=== PATIENT | male | born 1965 | race Caucasian/White ===

== ENCOUNTER 2017-12-13 08:13 | Inpatient (IN) | payer BC ==
[~2017-12-13] VITALS: Ht 180.3 cm; Wt 136.5 kg
[2017-12-13] VITALS (20 sets, daily range): BP systolic 132–171; BP diastolic 8–86; PULSE 55–69; RESP 17–20; TEMP 97.6–98.1; O2SAT 94–98
[2017-12-13] MEDS ORDERED: LISI10TA3 PO (08:23)
[2017-12-13] MEDS ORDERED: PLAV75TA29 PO (08:23)
[2017-12-13] MEDS ORDERED: GLIP10TA6 PO (08:23)
[2017-12-13] MEDS ORDERED: LEVEMIR SQ ×2 (08:23)
[2017-12-13] MEDS ORDERED: HYDR-3801 PO ×2 (08:26→15:45)
[2017-12-13] MEDS ORDERED: ASPI-516 PO (08:27)
[2017-12-13] MEDS ORDERED: CARV25TA PO (08:27)
[2017-12-13] MEDS ORDERED: VALS1TAB65 PO (08:28)
[2017-12-13] MEDS ORDERED: ISOS60TA PO (08:28)
[2017-12-13] MEDS ORDERED: ATOR40TA16 PO (08:28)
[2017-12-13] MEDS ORDERED: SODIUM CHLORIDE 0.9% FLUSH 10 ML FLUSH IVF PRN (08:30)
[2017-12-13] MEDS ORDERED: ASPIRIN 81 MG CHEW TAB PO ONE (08:30)
[2017-12-13 08:53] LABS: AUTOMATED NEUTROPHIL # 6.5 TH/MM3 (1.8-7.7); BASOPHIL % 0.5 % (0.0-2.0); EOSINOPHIL # 0.2 TH/MM3 (0-0.4); EOSINOPHIL % 1.8 % (0.0-4.0); HEMATOCRIT 26.4 % (39.0-51.0); HEMOGLOBIN 8.9 GM/DL (13.0-17.0); LYMPH % 18.6 % (9.0-44.0); LYMPHOCYTE # 1.7 TH/MM3 (1.0-4.8); MEAN CELL VOLUME 83.8 FL (80.0-100.0); MEAN CORPUSCULAR HEMOGLOBIN 28.2 PG (27.0-34.0); MEAN CORPUSCULAR HGB CONC 33.7 % (32.0-36.0); MONOCYTE # 0.9 TH/MM3 (0-0.9); NEUT % 69.1 % (16.0-70.0); PLATELET COUNT 169 TH/MM3 (150-450); RED BLOOD COUNT 3.15 MIL/MM3 (4.50-5.90); RED CELL DISTRIBUTION WIDTH 14.7 % (11.6-17.2); WHITE BLOOD COUNT 9.3 TH/MM3 (4.0-11.0)
[2017-12-13 09:05] LABS: INTERNATIONAL NORMALIZED RATIO 1.1 RATIO
[2017-12-13 09:14] LABS: ALBUMIN 3.5 GM/DL (3.4-5.0); AST (GOT) 22 U/L (15-37); BICARBONATE 14.9 MEQ/L (21.0-32.0); BLOOD UREA NITROGEN 97 MG/DL (7-18); CALCIUM 8.6 MG/DL (8.5-10.1); CHLORIDE 116 MEQ/L (98-107); CREATININE 2.42 MG/DL (0.60-1.30); GLOMERULAR FILTRATION RATE 29 ML/MIN (>89); GLUCOSE,RANDOM 148 MG/DL (74-106); SODIUM (NA) 141 MEQ/L (136-145)
[2017-12-13 09:19] LABS: ALKALINE PHOSPHATASE 76 U/L (45-117); ALT (GPT) 24 U/L (12-78); TOTAL BILIRUBIN ADULT 0.3 MG/DL (0.2-1.0); TOTAL PROTEIN 7.5 GM/DL (6.4-8.2); TROPONIN I 0.27 NG/ML (0.02-0.05)
[2017-12-13] MEDS ORDERED: SODIUM CHLOR 0.9% 1000 ML INJ 1,000 ML IV ONE (09:30)
--- NOTE | 2017-12-13 09:34 | PD ---
HPI Chief Complaint: Chest Pain Time Seen by Provider: 08:21 Travel History International Travel<30 days: No Contact w/Intl Traveler<30days: No Traveled to known affect area: No History of Present Illness HPI Patient is a 52 year old male with history of CABG, who comes in complaining of chest pain. He says he often gets chest pain, usually in the afternoons after exerting himself. He says that two days ago he started having this pain and it has not been going away. He says that yesterday he was fine, but again today he developed severe pain. He says he feels like the pain comes up from his stomach and then he has some crushing pain to the middle of his chest. Two days ago he had some nausea and vomiting. He denies difficulty breathing or fever or chills. He has not taken anything for his symptoms. He says that usually rest makes his pain better, but it has still been coming on. Severity is moderate. PFSH Past Medical History Hx Anticoagulant Therapy: Yes (plavix) Cardiomyopathy: Yes Cardiovascular Problems: Yes High Cholesterol: Yes Diabetes: Yes Patient Takes Glucophage: No Diminished Hearing: No Hypertension: Yes Medical other: Yes Tetanus Vaccination: < 5 Years Influenza Vaccination: No Past Surgical History Cardiac Surgery: Yes (CABG) Coronary Artery Bypass Graft: Yes Social History Alcohol Use: No Tobacco Use: No Substance Use: No Allergies-Medications (Allergen,Severity, Reaction): Coded Allergies: lisinopril (Verified Adverse Reaction, Severe, HEADACHE, 12/13/17) sitagliptin (Verified Adverse Reaction, Severe, NAUSEAS, 12/13/17) Reported Meds & Prescriptions Reported Meds & Active Scripts Active Reported Hydralazine (Hydralazine HCl) 100 Mg Tab 100 Mg PO TID Take with meals Atorvastatin (Atorvastatin Calcium) 40 Mg Tab 40 Mg PO HS Isosorbide Mononitrate ER (Isosorbide Mononitrate) 60 Mg Tab 60 Mg PO DAILY Valsartan 160 Mg Tab 160 Mg PO DAILY Carvedilol 25 Mg Tab 25 Mg PO BID Aspirin 81 Mg Chew 81 Mg PO DAILY Levemir Inj (Insulin Detemir) 1,000 unit/ 10 ML Vial 25 Units SQ DAILY Do not mix with any other Insulin. Glipizide 10 Mg Tab 10 Mg PO DAILY Take 30 minutes before a meal Plavix (Clopidogrel Bisulfate) 75 Mg Tab 75 Mg PO DAILY Review of Systems Except as stated in HPI: all other systems reviewed are Neg General / Constitutional: No: Fever, Chills HENT: No: Headaches, Lightheadedness Cardiovascular: Positive: Chest Pain or Discomfort Respiratory: No: Shortness of Breath Gastrointestinal: Positive: Nausea Genitourinary: No: Dysuria Musculoskeletal: No: Myalgias, Edema Skin: No Rash, No Change in Pigmentation Physical Exam Narrative GENERAL: Awake and alert, no acute distress. SKIN: Focused skin assessment warm/dry. HEAD: Atraumatic. Normocephalic. EYES: Pupils equal and round. No scleral icterus. ENT: Mucous membranes pink and moist. NECK: Trachea midline. No JVD. CARDIOVASCULAR: Regular rate and rhythm. No murmur appreciated. RESPIRATORY: No accessory muscle use. Clear to auscultation. Breath sounds equal bilaterally. GASTROINTESTINAL: Abdomen soft, non-tender, nondistended. MUSCULOSKELETAL: No obvious deformities. No clubbing. No cyanosis. No edema. NEUROLOGICAL: Awake and alert. No obvious cranial nerve deficits. Motor grossly within normal limits. Normal speech. PSYCHIATRIC: Appropriate mood and affect; insight and judgment normal. Data Data Last Documented VS Vital Signs Date Time Temp Pulse Resp B/P (MAP) Pulse Ox O2 Delivery O2 Flow Rate FiO2 12/13/17 10:32 97.7 58 18 132/62 (85) 97 Room Air Orders Orders B-Type Natriuretic Peptide (12/13/17 08:29) Complete Blood Count With Diff (12/13/17 08:29) Comprehensive Metabolic Panel (12/13/17 08:29) Prothrombin Time / Inr (Pt) (12/13/17 08:29) Act Partial Throm Time (Ptt) (12/13/17 08:29) Troponin I (12/13/17 08:29) Lipase (12/13/17 08:29) Chest, Single Ap (12/13/17 08:29) Ecg Monitoring (12/13/17 08:29) Bilateral Bp Monitoring (12/13/17 08:29) Iv Access Insert/Monitor (12/13/17 08:29) Oximetry (12/13/17 08:29) Oxygen Administration (12/13/17 08:29) Aspirin Chew (Aspirin Chew) (12/13/17 08:30) Sodium Chloride 0.9% Flush (Ns Flush) (12/13/17 08:30) Sodium Chlor 0.9% 1000 Ml Inj (Ns 1000 M (12/13/17 09:30) Ct Abd/Pel W/O Iv Contrast (12/13/17 ) Electrocardiogram (12/13/17 08:21) Admit Order (Ed Use Only) (12/13/17 ) Labs Laboratory Tests Test 12/13/17 08:36 White Blood Count 9.3 TH/MM3 Red Blood Count 3.15 MIL/MM3 Hemoglobin 8.9 GM/DL Hematocrit 26.4 % Mean Corpuscular Volume 83.8 FL Mean Corpuscular Hemoglobin 28.2 PG Mean Corpuscular Hemoglobin Concent 33.7 % Red Cell Distribution Width 14.7 % Platelet Count 169 TH/MM3 Mean Platelet Volume 8.0 FL Neutrophils (%) (Auto) 69.1 % Lymphocytes (%) (Auto) 18.6 % Monocytes (%) (Auto) 10.0 % Eosinophils (%) (Auto) 1.8 % Basophils (%) (Auto) 0.5 % Neutrophils # (Auto) 6.5 TH/MM3 Lymphocytes # (Auto) 1.7 TH/MM3 Monocytes # (Auto) 0.9 TH/MM3 Eosinophils # (Auto) 0.2 TH/MM3 Basophils # (Auto) 0.0 TH/MM3 CBC Comment DIFF FINAL Differential Comment Prothrombin Time 11.0 SEC Prothromb Time International Ratio 1.1 RATIO Activated Partial Thromboplast Time 31.9 SEC Blood Urea Nitrogen 97 MG/DL Creatinine 2.42 MG/DL Random Glucose 148 MG/DL Total Protein 7.5 GM/DL Albumin 3.5 GM/DL Calcium Level 8.6 MG/DL Alkaline Phosphatase 76 U/L Aspartate Amino Transf (AST/SGOT) 22 U/L Alanine Aminotransferase (ALT/SGPT) 24 U/L Total Bilirubin 0.3 MG/DL Sodium Level 141 MEQ/L Potassium Level 4.9 MEQ/L Chloride Level 116 MEQ/L Carbon Dioxide Level 14.9 MEQ/L Anion Gap 10 MEQ/L Estimat Glomerular Filtration Rate 29 ML/MIN Total Creatine Kinase 238 U/L Troponin I 0.27 NG/ML B-Type Natriuretic Peptide 273 PG/ML Triglycerides Level 99 MG/DL Cholesterol Level 60 MG/DL LDL Cholesterol 10 MG/DL HDL Cholesterol 30.3 MG/DL Cholesterol/HDL Ratio 1.98 RATIO Lipase 1238 U/L MDM Medical Decision Making Medical Screen Exam Complete: Yes Emergency Medical Condition: Yes Interpretation(s) ECG shows normal sinus rhythm, mild ST depression in leads I and aVL. Differential Diagnosis ACS versus an STEMI versus STEMI versus pancreatitis versus cholecystitis Narrative Course Patient is a 52-year-old male who comes in complaining of chest pain that radiates to his back. He did have some nausea and vomiting as well. IV established, labs sent. Labs show an elevated troponin to 0.27. Lipase is also elevated to 1238 and BUN is 97 with a creatinine of 2.37. Patient given IV fluids. Given aspirin and started on heparin. CT abdomen and pelvis performed shows possible gallstone. Last 24 hours Impressions Chest X-Ray 12/13/17 0829 Signed Impressions: Service Date/Time: Wednesday, December 13, 2017 08:38 - CONCLUSION: 1. Minimal streakiness within the left midlung field consistent with atelectasis and/or developing infiltrate. 2. Cardiomegaly. Kamran Reyes MD Abdomen/Pelvis CT 12/13/17 0000 Signed Impressions: Service Date/Time: Wednesday, December 13, 2017 10:07 - CONCLUSION: 1. Probable gallstones. Otherwise no acute findings within the abdomen and pelvis. Manuel Ruiz MD I spoke with gastroenterology who will consult on the patient. Patient will be admitted for further management. Diagnosis Primary Impression: Gallstone pancreatitis Additional Impressions: Chest pain Qualified Codes: R07.89 - Other chest pain CAD (coronary artery disease) Qualified Codes: I25.118 - Atherosclerotic heart disease of [place] coronary artery with other forms of angina pectoris Admitting Information Admitting Physician Requests: it Cathy Guillen MD Dec 13, 2017 09:34
--- NOTE | 2017-12-13 09:50 | RADRPT ---
EXAM DATE/TIME: 12/13/2017 08:38 [facility] COMPARISON: No previous studies available for comparison. INDICATIONS : Chest pain. MEDICAL HISTORY : None. SURGICAL HISTORY : CABG. ENCOUNTER: Initial ACUITY: 1 day PAIN SCORE: 0/10 LOCATION: Bilateral chest FINDINGS: The heart is enlarged. Mediastinal wires are noted status post cardiac surgery. Minimal streakiness i s noted within the left midlung field. CONCLUSION: 1. Minimal streakiness within the left midlung field consistent with atelectasis and/or developing in filtrate. 2. Cardiomegaly. Kamran Reyes MD on December 13, 2017 at 9:47 Board Certified Radiologist. This report was verified electronically.
--- NOTE | 2017-12-13 10:39 | RADRPT ---
EXAM DATE/TIME: 12/13/2017 10:07 [facility] COMPARISON: No previous studies available for comparison. INDICATIONS : Epigastric pain with abnormal lab values. ORAL CONTRAST: No oral contrast ingested. RADIATION DOSE: 34.80 CTDIvol (mGy) ; Patient body habitus MEDICAL HISTORY : Hypertension. Cardiovascular disease Diabetes SURGICAL HISTORY : Chest surgery ENCOUNTER: Initial ACUITY: 1 day PAIN SCALE: 3/10 LOCATION: Bilateral epigastric TECHNIQUE: Volumetric scanning of the abdomen and pelvis was performed. Using automated exposure control and ad justment of the mA and/or kV according to patient size, radiation dose was kept as low as reasonably achievable to obtain optimal diagnostic quality images. DICOM format image data is available electro nically for review and comparison. FINDINGS: There is dependent atelectasis in the lungs. No acute findings in the liver, spleen, adrenals, kidneys or pancreas. Probable gallstone in gallblad liliana. No biliary ductal dilatation. Scattered colonic diverticula without evidence for diverticulitis. No bowel obstruction. No free air or free fluid. No adenopathy. CONCLUSION: 1. Probable gallstones. Otherwise no acute findings within the abdomen and pelvis. Manuel Ruiz MD on December 13, 2017 at 10:34 Board Certified Radiologist. This report was verified electronically.
[2017-12-13] MEDS ORDERED: HEPARIN SODIUM - IV 10,000 UNITS/10 ML VIAL IV PUSH ONE (11:15)
--- NOTE | 2017-12-13 11:25 | HHI.HP ---
[facility] Service Family Medicine Primary Care Physician No Primary Care Physician Admission Diagnosis NSTEMI, pancreatitis Diagnoses: Chief Complaint: chest pain International Travel<30 Days: No Contact w/Intl Traveler<30days: No Known Affected Area: No History of Present Illness Patient is a 52 year old male with a PMH significant for CAD s/p CABG, HTN, CKD , and DM type 2 who presents today for chest pain. He has a history significant for chest pain that has been evaluated by both cardiology and GI in the past. The chest pain he has today is the same as the pain he has been previously evaluated for. He notes that 2 days ago, he had bad chest pain. He rested the next day and his chest pain resolved, but then the pain returned today. The pain is not as strong today as it was two days ago. The pain he has been having is the same as the pain he has been having for the last few years, however usually the pain goes away with rest, but today the pain persisted and he did not feel that he could do his job. He believes this may be related to working long hours for [employer]. The pain worsens with exertion. The pain is described as pressure that is located in the center of his chest. He describes it as an exertional chest pain that subsides with rest. He denies any shortness of breath with the pain. He notes that sitting up helps the pain. He has tried nitro in the past which has helped with his pain. He is not currently having any chest pain. Sometimes he will have the pain several days in a row and sometimes he can go for a week without pain. He is currently established with [facility] in [place]. He has also had GI evaluation including an endoscopy which was normal. (Kristyn Briseno MD, R3) Review of Systems Constitutional: DENIES: Diaphoretic episodes, Fatigue, Fever, Chills, Dizziness , Change in appetite Endocrine: DENIES: Polydipsia Eyes: DENIES: Blurred vision Ears, nose, mouth, throat: DENIES: Running Nose, Sinus Pain Respiratory: DENIES: Cough, Shortness of breath Cardiovascular: COMPLAINS OF: Chest pain, Lower Extremity Edema, DENIES: Syncope, Dyspnea on Exertion, Orthopnea Gastrointestinal: DENIES: Abdominal pain, Constipation, Diarrhea, Nausea, Vomiting Musculoskeletal: COMPLAINS OF: Muscle aches, DENIES: Joint pain, Back pain Neurologic: DENIES: Headache Psychiatric: DENIES: Confusion (Kristyn Briseno MD, R3) Past Family Social History Past Medical History DM type 2 HTN CAD s/p CABG CKD Past Surgical History CABG x1 2014 Reported Medications Reported Meds & Active Scripts Active Reported Atorvastatin (Atorvastatin Calcium) 40 Mg Tab 40 Mg PO HS Isosorbide Mononitrate ER (Isosorbide Mononitrate) 60 Mg Tab 60 Mg PO DAILY Valsartan 160 Mg Tab 160 Mg PO DAILY Carvedilol 25 Mg Tab 25 Mg PO BID Aspirin 81 Mg Chew 81 Mg PO DAILY Hydralazine (Hydralazine HCl) 100 Mg Tab 50 Mg PO BID Take with meals Levemir Inj (Insulin Detemir) 1,000 unit/ 10 ML Vial 25 Units SQ DAILY Do not mix with any other Insulin. Glipizide 10 Mg Tab 10 Mg PO DAILY Take 30 minutes before a meal Plavix (Clopidogrel Bisulfate) 75 Mg Tab 75 Mg PO DAILY (Kristyn Briseno MD, R3) Allergies: Coded Allergies: lisinopril (Verified Adverse Reaction, Severe, HEADACHE, 12/13/17) sitagliptin (Verified Adverse Reaction, Severe, NAUSEAS, 12/13/17) Active Ordered Medications Current Medications Medications (Trade) Dose Ordered Sig/Mary Route Start Time Stop Time Status Last Admin (NS Flush) 2 ml UNSCH PRN IVF 12/13/17 08:30 12/13/17 08:37 (Heparin Inj) 8,000 units ONCE ONCE IV PUSH 12/13/17 11:15 12/13/17 11:16 (Heparin Inj) 5,000 units UNSCH PRN IV PUSH 12/13/17 17:15 (Heparin Inj) 2,500 units UNSCH PRN IV PUSH 12/13/17 17:15 Heparin Sodium/ Dextrose 250 ml @ 0 mls/hr TITRATE PRN IV 12/13/17 11:15 UNV Family History Mother: DM type 2, HTN Father: renal cancer, DM type 2, CAD Children: healthy 7 siblings: DM type 2, HTN Social History No tobacco, alcohol, illicit drug use. From [place], in town for bike week, working for [employer]. (Kristyn Briseno MD, R3) Physical Exam Vital Signs Vital Signs Date Time Temp Pulse Resp B/P (MAP) Pulse Ox O2 Delivery O2 Flow Rate FiO2 3/14/18 10:32 97.7 58 18 132/62 (85) 97 Room Air 12/13/17 09:19 97.7 64 18 136/63 (87) 98 Room Air 12/13/17 08:33 67 20 166/71 (102) Room Air 138/63 (88) 12/13/17 08:32 20 97 Room Air 12/13/17 08:32 97 Room Air 12/13/17 08:20 72 20 98 Room Air 12/13/17 08:18 98.0 68 20 166/71 (102) 97 Physical Exam GENERAL: This is a well-nourished, well-developed obese male patient, in no apparent distress. SKIN: No rashes, ecchymoses or lesions. Cool and dry. HEAD: Atraumatic. Normocephalic. No temporal or scalp tenderness. EYES: Pupils equal round and reactive. Extraocular motions intact. No scleral icterus. No injection or drainage. ENT: Nose without bleeding, purulent drainage or septal hematoma. Throat without erythema, tonsillar hypertrophy or exudate. Uvula midline. Airway patent. NECK: Trachea midline. No JVD or lymphadenopathy. Supple, nontender, no meningeal signs. CARDIOVASCULAR: Regular rate and rhythm without murmurs, gallops, or rubs. Minimal tenderness to palpation of chest wall. RESPIRATORY: Clear to auscultation. Breath sounds equal bilaterally. No wheezes , rales, or rhonchi. GASTROINTESTINAL: Abdomen soft, non-tender, nondistended. No hepato-splenomegaly , or palpable masses. No guarding. MUSCULOSKELETAL: Extremities without clubbing, cyanosis, or edema. No joint tenderness or effusion. Trace edema. No calf tenderness. Negative Homans sign bilaterally. NEUROLOGICAL: Awake and alert. Cranial nerves II through XII intact. Motor and sensory grossly within normal limits. Normal speech. Laboratory Laboratory Tests Test 12/13/17 08:36 White Blood Count 9.3 Red Blood Count 3.15 Hemoglobin 8.9 Hematocrit 26.4 Mean Corpuscular Volume 83.8 Mean Corpuscular Hemoglobin 28.2 Mean Corpuscular Hemoglobin Concent 33.7 Red Cell Distribution Width 14.7 Platelet Count 169 Mean Platelet Volume 8.0 Neutrophils (%) (Auto) 69.1 Lymphocytes (%) (Auto) 18.6 Monocytes (%) (Auto) 10.0 Eosinophils (%) (Auto) 1.8 Basophils (%) (Auto) 0.5 Neutrophils # (Auto) 6.5 Lymphocytes # (Auto) 1.7 Monocytes # (Auto) 0.9 Eosinophils # (Auto) 0.2 Basophils # (Auto) 0.0 CBC Comment DIFF FINAL Differential Comment Prothrombin Time 11.0 Prothromb Time International Ratio 1.1 Activated Partial Thromboplast Time 31.9 Blood Urea Nitrogen 97 Creatinine 2.42 Random Glucose 148 Total Protein 7.5 Albumin 3.5 Calcium Level 8.6 Alkaline Phosphatase 76 Aspartate Amino Transf (AST/SGOT) 22 Alanine Aminotransferase (ALT/SGPT) 24 Total Bilirubin 0.3 Sodium Level 141 Potassium Level 4.9 Chloride Level 116 Carbon Dioxide Level 14.9 Anion Gap 10 Estimat Glomerular Filtration Rate 29 Troponin I 0.27 B-Type Natriuretic Peptide 273 Lipase 1238 (Kristyn Briseno MD, R3) Result Diagram: 12/13/17 0836 12/13/17 0836 Imaging Last Impressions Chest X-Ray 12/13/17 0829 Signed Impressions: Service Date/Time: Wednesday, December 13, 2017 08:38 - CONCLUSION: 1. Minimal streakiness within the left midlung field consistent with atelectasis and/or developing infiltrate. 2. Cardiomegaly. Kamran Reyes MD Abdomen/Pelvis CT 12/13/17 0000 Signed Impressions: Service Date/Time: Wednesday, December 13, 2017 10:07 - CONCLUSION: 1. Probable gallstones. Otherwise no acute findings within the abdomen and pelvis. Manuel Ruiz MD (Kristyn Briseno MD, R3) Caprini VTE Risk Assessment Caprini VTE Risk Assessment: Mod/High Risk (score >= 2) Caprini Risk Assessment Model Point Value = 1 Point Value = 2 Point Value = 3 Point Value = 5 Age 41-60 Minor surgery BMI > 25 kg/m2 Swollen legs Varicose veins or History of unexplained or recurrent spontaneous Oral contraceptives or hormone replacement Sepsis (< 1 month) Serious lung disease, including pneumonia (< 1 month) Abnormal pulmonary function Acute myocardial infarction Congestive heart failure (< 1 month) History of inflammatory bowel disease Medical patient at bed rest Age 61-74 Arthroscopic surgery Major open surgery (> 45 min) Laparoscopic surgery (> 45 min) Malignancy Confined to bed (> 72 hours) Immobilizing plaster cast Central venous access Age >= 75 History of VTE Family history of VTE Factor V Leiden Prothrombin [id number] Lupus anticoagulant Anticardiolipin antibodies Elevated serum homocysteine Heparin-induced thrombocytopenia Other congenital or acquired thrombophilia Stroke (< 1 month) Elective arthroplasty Hip, pelvis, or leg fracture Acute spinal cord injury (< 1 month) Prophylaxis Regimen Total Risk Factor Score Risk Level Prophylaxis Regimen 0-1 Low Early ambulation 2 Moderate Order ONE of the following: *Sequential Compression Device (SCD) *Heparin 5000 units SQ BID 3-4 Higher Order ONE of the following medications: *Heparin 5000 units SQ TID *Enoxaparin/Lovenox 40 mg SQ daily (WT < 150 kg, CrCl > 30 mL/min) *Enoxaparin/Lovenox 30 mg SQ daily (WT < 150 kg, CrCl > 10-29 mL/min) *Enoxaparin/Lovenox 30 mg SQ BID (WT < 150 kg, CrCl > 30 mL/min) AND/OR *Sequential Compression Device (SCD) 5 or more Highest Order ONE of the following medications: *Heparin 5000 units SQ TID (Preferred with Epidurals) *Enoxaparin/Lovenox 40 mg SQ daily (WT < 150 kg, CrCl > 30 mL/min) *Enoxaparin/Lovenox 30 mg SQ daily (WT < 150 kg, CrCl > 10-29 mL/min) *Enoxaparin/Lovenox 30 mg SQ BID (WT < 150 kg, CrCl > 30 mL/min) AND *Sequential Compression Device (SCD) (Kristyn Briseno MD, R3) Assessment and Plan Assessment and Plan Patient is a 52 year old male with a PMH significant for CAD s/p CABG, HTN, and DM type 2 who presents today for chest pain. Code Status Full Code Discussed Condition With sdw Dr. Dunham and Dr. De Leon R1 (Kristyn Briseno MD, R3) Attending Attestation Patient seen and examined. Case reviewed and discussed with the resident team. Agree with plan of care as discussed with me and documented in the resident note. he was seen by me on admission. agree with pancreatitis as his diagnosis but will evaluate for his half-way chest pain as well (Arelis Dunham MD) Problem List: (1) Chest pain ICD Codes: R07.9 - Chest pain, unspecified Status: Acute Plan: -DDx includes ACS, GERD, panic attack, myocarditis, costochondritis, esophageal spasm. -CAD risk factors include obesity, FH of [place], HTN, DM. -Previous stress test normal. -EKG shows NSR -CXR showed minimal streakiness in the left midlung field consistent with atelectasis or developing infiltrate. -Initial Trop elevated at 0.27. Trend Chinedu and EKGs x 2. -Supplemental O2. Daily aspirin. Protonix. -Morphine 2mg Q2 hrs PRN chest pain only. -Continue home carvedilol 25 mg by mouth twice a day -NTG PRN -Tele. -NPO for now in case of PCI. - Continue heparin drip started in the ED (2) Gallstone pancreatitis ICD Codes: K85.10 - Biliary acute pancreatitis without necrosis or infection Status: Acute Plan: Physical exam benign, no history of abdominal pain LFTs within normal limits Lipase elevated at 1238 CT abdomen/pelvis shows probably gallstones Consult GI for possible ERCP if deemed necessary (3) HTN (hypertension) ICD Codes: I10 - Essential (primary) hypertension Status: Chronic Plan: Stable. Continue home dose of carvedilol 25 mg by mouth twice a day, hydralazine 50 mg by mouth twice a day, valsartan 160 mg by mouth daily (4) CAD (coronary artery disease) ICD Codes: I25.10 - Atherosclerotic heart disease of [place] coronary artery without angina pectoris Status: Chronic Plan: Continue Plavix 75 mg by mouth daily, atorvastatin 40 mg by mouth at bedtime, isosorbide mononitrate 60 mg by mouth daily, aspirin 81 mg by mouth daily and carvedilol 25 mg by mouth twice a day (5) CKD (chronic kidney disease) ICD Codes: N18.9 - Chronic kidney disease, unspecified Status: Chronic Plan: Creatinine 2.42 on admission, no baseline available however patient states it is usually around 4 Avoid nephrotoxic medications Renally dose medications (6) DM type 2 (diabetes mellitus, type 2) ICD Codes: E11.9 - Type 2 diabetes mellitus without complications Status: Chronic Plan: Patient on glipizide 10 mg by mouth daily and Levemir 25 units SQ daily at home Hold home glipizide Decrease Levemir to 12 units SQ daily as patient is currently nothing by mouth Accu-Cheks and Sliding scale insulin (7) Nutrition, metabolism, and development symptoms ICD Codes: R63.8 - Other symptoms and signs concerning food and fluid intake Status: Acute Plan: Fluids: None Electrolytes: wnl, continue to monitor and replete PRN Nutrition: NPO for possible cath DVT ppx: on heparin drip (Kristyn Briseno MD, R3) Physician Certification 2 Midnight Certification Type: Admission for Inpatient Services Order for Inpatient Services The services are ordered in accordance with Medicare regulations or non- Medicare payer requirements, as applicable. In the case of services not specified as inpatient-only, they are appropriately provided as inpatient services in accordance with the 2-midnight benchmark. Estimated LOS (days): 2 days is the estimated time the patient will need to remain in the hospital, assuming treatment plan goals are met and no additional complications. Post-Hospital Plan: Home (Kristyn Briseno MD, R3) Problem Qualifiers (1) Chest pain: Qualified Codes: R07.89 - Other chest pain (2) HTN (hypertension): Qualified Codes: I10 - Essential (primary) hypertension (3) CAD (coronary artery disease): Qualified Codes: I25.118 - Atherosclerotic heart disease of [place] coronary artery with other forms of angina pectoris (4) CKD (chronic kidney disease): Qualified Codes: N18.9 - Chronic kidney disease, unspecified (5) DM type 2 (diabetes mellitus, type 2): Qualified Codes: E11.8 - Type 2 diabetes mellitus with unspecified complications; Z79.4 - detention (current) use of insulin Kristyn Briseno MD, R3 Dec 13, 2017 11:25 Arelis Dunham MD Dec 14, 2017 13:35
[2017-12-13] MEDS: HEPARIN-D5W 25,000 U/250 ML 250 ML IV PRN (11:28)
[2017-12-13] MEDS ORDERED: NITROGLYCERIN 0.4 MG SL 25 TABS/BTL SL PRN (11:45)
[2017-12-13] MEDS ORDERED: SODIUM CHLORIDE 0.9% FLUSH 10 ML FLUSH IV FLUSH PRN (11:45)
[2017-12-13] MEDS ORDERED: ONDANSETRON HCL 4 MG/2 ML VIAL IVP PRN (11:45)
[2017-12-13] MEDS ORDERED: MORPHINE SULFATE 2 MG/ML INJ IV PUSH PRN (11:45)
[2017-12-13] MEDS ORDERED: ACETAMINOPHEN 325 MG TAB PO PRN (11:45)
[2017-12-13] MEDS ORDERED: DOCUSATE SODIUM 50 MG/SENNA 8.6 MG TAB PO PRN (11:45)
[2017-12-13] MEDS ORDERED: NALOXONE HCL 0.4 MG/ML AMP IV PUSH PRN (11:45)
[2017-12-13] MEDS: SODIUM CHLOR 0.9% 1000 ML INJ 1,000 ML IV SCH ×3 (12:03→22:53)
[2017-12-13] MEDS ORDERED: DEXTROSE 50% IN WATER 50 ML VIAL(D50) IV PUSH PRN (12:15)
[2017-12-13] MEDS ORDERED: GLUCAGON 1 MG/ML VIAL OTHER PRN (12:15)
[2017-12-13 13:48] LABS: CHOLESTEROL/ HDL RATIO 1.98 RATIO; HDL CHOLESTEROL 30.3 MG/DL (40.0-60.0)
--- NOTE | 2017-12-13 13:52 | PD.CONS ---
HPI History of Present Illness This is a 52 year old morbidly obese male admitted on 12/13/17 with presentation of chest pain. Patient has significant history of coronary artery disease and according to the record and patient he is status post CABG 3 years ago. He has struggled with chest pain off and on since the bypass surgery and has had GI evaluations for his epigastric chest pain that radiates up into the chest. Patient notes EGD approximately 4 months ago from the [place] area which was unremarkable. Currently patient's symptoms are increased stress levels, nausea and vomiting 2 days before this hospital admission, now still complaining of some nausea but no vomiting. Patient is noted to have possible non-STEMI, heparin drip has been started. Okay per gastroenterology, at this time no plans for any invasive procedures. Patient does have elevated lipase level 1238 on admission, bilirubin and LFTs within normal range. Alkaline phosphatase normal. Hemoglobin 8.9. Patient home meds include Plavix, BP and heart medications. Currently patient denies diarrhea or constipation, no dysphagia, no hematemesis or rectal bleeding. Patient has no family history of colon cancer. No colonoscopy in the past. (Katie Ambriz) PFSH Past Medical History Coronary artery disease Hypertension Chronic kidney disease Morbid obesity Diabetes type 2 Chronic stress Cardiomegaly Past Surgical History CABG , 2014 (Katie Ambriz) Coded Allergies: lisinopril (Verified Adverse Reaction, Severe, HEADACHE, 12/13/17) sitagliptin (Verified Adverse Reaction, Severe, NAUSEAS, 12/13/17) Medications Administered Medications Medications (Trade) Dose Ordered Sig/Mary Route PRN Reason Start Time Stop Time Status Last Admin Dose Admin Heparin Sodium/ Dextrose 250 ml @ 10 mls/hr TITRATE PRN IV Coagulation Management 12/13/17 11:15 12/13/17 11:28 Sodium Chloride 1,000 ml @ 177 mls/hr [id number] IV 12/13/17 11:35 12/13/17 12:03 Family History No colon cancer Social History Patient is Nonsmoker Illicit drugs no alcohol (Katie Ambriz) Review of Systems Gastrointestinal: COMPLAINS OF: Abdominal pain (epigastric radiating up into chest) Psychiatric: COMPLAINS OF: Anxiety (increased stress levels acute on chronic) ( Morganza,Katie 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) GI Exam Vitals I&O Vital Signs Date Time Temp Pulse Resp B/P (MAP) Pulse Ox O2 Delivery O2 Flow Rate FiO2 12/13/17 13:00 97.8 55 17 154/72 (99) 98 Room Air 12/13/17 12:31 97 21 12/13/17 11:53 97.8 60 17 141/61 (87) 98 Room Air 12/13/17 10:32 97.7 58 18 132/62 (85) 97 Room Air 12/13/17 09:19 97.7 64 18 136/63 (87) 98 Room Air 12/13/17 08:33 67 20 166/71 (102) Room Air 138/63 (88) 12/13/17 08:32 20 97 Room Air 12/13/17 08:32 97 Room Air 12/13/17 08:20 72 20 98 Room Air 12/13/17 08:18 98.0 68 20 166/71 (102) 97 I/O 12/12/17 12/12/17 12/12/17 12/13/17 12/13/17 12/13/17 07:00 15:00 23:00 07:00 15:00 23:00 Intake Total 1000 ml Balance 1000 ml Intake IV Total 1000 ml Imaging Last Impressions Chest X-Ray 12/13/17 0829 Signed Impressions: Service Date/Time: Wednesday, December 13, 2017 08:38 - CONCLUSION: 1. Minimal streakiness within the left midlung field consistent with atelectasis and/or developing infiltrate. 2. Cardiomegaly. Kamran Reyes MD Abdomen/Pelvis CT 12/13/17 0000 Signed Impressions: Service Date/Time: Wednesday, December 13, 2017 10:07 - CONCLUSION: 1. Probable gallstones. Otherwise no acute findings within the abdomen and pelvis. Manuel Ruiz MD Laboratory Test 12/13/17 08:36 White Blood Count 9.3 TH/MM3 Red Blood Count 3.15 MIL/MM3 Hemoglobin 8.9 GM/DL Hematocrit 26.4 % Mean Corpuscular Volume 83.8 FL Mean Corpuscular Hemoglobin 28.2 PG Mean Corpuscular Hemoglobin Concent 33.7 % Red Cell Distribution Width 14.7 % Platelet Count 169 TH/MM3 Mean Platelet Volume 8.0 FL Neutrophils (%) (Auto) 69.1 % Lymphocytes (%) (Auto) 18.6 % Monocytes (%) (Auto) 10.0 % Eosinophils (%) (Auto) 1.8 % Basophils (%) (Auto) 0.5 % Neutrophils # (Auto) 6.5 TH/MM3 Lymphocytes # (Auto) 1.7 TH/MM3 Monocytes # (Auto) 0.9 TH/MM3 Eosinophils # (Auto) 0.2 TH/MM3 Basophils # (Auto) 0.0 TH/MM3 CBC Comment DIFF FINAL Differential Comment Prothrombin Time 11.0 SEC Prothromb Time International Ratio 1.1 RATIO Activated Partial Thromboplast Time 31.9 SEC Blood Urea Nitrogen 97 MG/DL Creatinine 2.42 MG/DL Random Glucose 148 MG/DL Total Protein 7.5 GM/DL Albumin 3.5 GM/DL Calcium Level 8.6 MG/DL Alkaline Phosphatase 76 U/L Aspartate Amino Transf (AST/SGOT) 22 U/L Alanine Aminotransferase (ALT/SGPT) 24 U/L Total Bilirubin 0.3 MG/DL Sodium Level 141 MEQ/L Potassium Level 4.9 MEQ/L Chloride Level 116 MEQ/L Carbon Dioxide Level 14.9 MEQ/L Anion Gap 10 MEQ/L Estimat Glomerular Filtration Rate 29 ML/MIN Troponin I 0.27 NG/ML B-Type Natriuretic Peptide 273 PG/ML Lipase 1238 U/L Physical Examination HEENT: Pupils round and reactive to light; normocephalic; atraumatic; no jaundice. Oral cavity clean NECK: Neck is obese, supple CHEST: Chest mild diminished bibasilar breath sounds, no audible rhonchi or wheezing CARDIAC: Regular rate and rhythm ABDOMEN: Obese, large,taut, , nondistended, nontender to light palpation; unable to palpate any hepatosplenomegaly; bowel sounds are present in all four quadrants. EXTREMITIES: Mild lower extremity edema. SKIN: Normal; no rash; no jaundice. 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 (Katie Ambriz) Assessment and Plan Assessment: (1) Gallstone pancreatitis ICD Codes: K85.10 - Biliary acute pancreatitis without necrosis or infection Status: Acute (2) Nutrition, metabolism, and development symptoms ICD Codes: R63.8 - Other symptoms and signs concerning food and fluid intake Status: Acute Plan Epigastric pain radiating up into chest unspecified, elevated troponins, currently being managed per cardiology on heparin drip. Workup with cardiology for non-STEMI Pancreatitis with Elevated lipase level 1238, no history of any gallstones in the past. LFTs and bilirubin normal. CAT scan done on 12/13/17 shows probable gallstones, otherwise unremarkable exam. Plan PPI Zofran for nausea Okay for heparin drip Monitor labs Monitor for any hematemesis or bleeding Supportive care Further recommendations dependent on patient's symptoms and plan a care needed for this hospital stay Patient was seen per myself and Dr. Hernandez, this note is written on his behalf (Katie Ambriz) Physician Comments Seen with Jessica, plan as above. Will follow up with you. Thank you for the consult. (Nevaeh Hernandez MD) Katie Ambriz Dec 13, 2017 13:52 Nevaeh Hernandez MD Dec 13, 2017 15:15
[2017-12-13 14:49] LABS: TROPONIN I 0.25 NG/ML (0.02-0.05)
[2017-12-13] MEDS: hydrALAZINE HCL 50 MG TAB PO SCH ×2 (16:40→18:00)
[2017-12-13] MEDS: INSULIN ASPART SUPPLEMENTAL SCALE SQ SCH ×2 (17:00→21:00)
[2017-12-13] MEDS ORDERED: HEPARIN SODIUM - IV 10,000 UNITS/10 ML VIAL IV PUSH PRN ×2 (17:15)
[2017-12-13] MEDS: INSULIN DETEMIR 100 UNITS/ML VIAL SQ SCH (21:00)
[2017-12-13] MEDS: SODIUM CHLORIDE 0.9% FLUSH 10 ML FLUSH IV FLUSH SCH (21:00)
[2017-12-13] MEDS ORDERED: hydrALAZINE HCL 50 MG TAB PO SCH (21:00)
[2017-12-13 21:08] LABS: TROPONIN I 0.19 NG/ML (0.02-0.05)
[2017-12-13] MEDS: CARVEDILOL 12.5 MG TAB PO SCH (21:44)
[2017-12-13] MEDS: ATORVASTATIN 40 MG TAB PO SCH (21:45)
--- NOTE | 2017-12-13 23:00 | EKG ---
Date Performed: 12/13/2017 Time Performed: 08:21:25 PTAGE: 52 years EKG: Sinus rhythm MODERATE ST DEPRESSION ABNORMAL ECG NO PREVIOUS TRACING DOCTOR: Joseph Mckinnon Interpretating Date/Time 12/13/2017 22:59:25
[2017-12-14] VITALS (24 sets, daily range): BP systolic 149–184; BP diastolic 67–88; PULSE 54–76; RESP 20; TEMP 97.7–98.9; O2SAT 94–98
[2017-12-14 01:10] LABS: AUTOMATED NEUTROPHIL # 6.8 TH/MM3 (1.8-7.7); BASOPHIL % 0.5 % (0.0-2.0); EOSINOPHIL # 0.2 TH/MM3 (0-0.4); EOSINOPHIL % 2.4 % (0.0-4.0); HEMATOCRIT 25.5 % (39.0-51.0); HEMOGLOBIN 8.5 GM/DL (13.0-17.0); LYMPH % 19.9 % (9.0-44.0); MEAN CELL VOLUME 83.8 FL (80.0-100.0); MEAN CORPUSCULAR HGB CONC 33.4 % (32.0-36.0); MEAN PLATELET VOLUME 7.7 FL (7.0-11.0); MONO % 8.2 % (0.0-8.0); MONOCYTE # 0.8 TH/MM3 (0-0.9); PLATELET COUNT 151 TH/MM3 (150-450); RED BLOOD COUNT 3.04 MIL/MM3 (4.50-5.90); RED CELL DISTRIBUTION WIDTH 14.4 % (11.6-17.2); WHITE BLOOD COUNT 9.8 TH/MM3 (4.0-11.0)
[2017-12-14 01:38] LABS: ALBUMIN 3.2 GM/DL (3.4-5.0); ALKALINE PHOSPHATASE 73 U/L (45-117); ALT (GPT) 21 U/L (12-78); AST (GOT) 13 U/L (15-37); BICARBONATE 17.6 MEQ/L (21.0-32.0); BLOOD UREA NITROGEN 76 MG/DL (7-18); CALCIUM 7.9 MG/DL (8.5-10.1); CHLORIDE 118 MEQ/L (98-107); CREATININE 2.14 MG/DL (0.60-1.30); GLOMERULAR FILTRATION RATE 33 ML/MIN (>89); GLUCOSE,RANDOM 170 MG/DL (74-106); SODIUM (NA) 144 MEQ/L (136-145); TOTAL BILIRUBIN ADULT 0.3 MG/DL (0.2-1.0)
[2017-12-14] MEDS: SODIUM CHLOR 0.9% 1000 ML INJ 1,000 ML IV SCH (05:00)
[2017-12-14] MEDS: HEPARIN-D5W 25,000 U/250 ML 250 ML IV PRN (06:08)
[2017-12-14] MEDS ORDERED: ISOSORBIDE MONONITRATE 60 MG CR TAB (IMDUR) PO SCH (07:00)
[2017-12-14] MEDS: INSULIN ASPART SUPPLEMENTAL SCALE SQ SCH ×4 (08:00→20:57)
[2017-12-14] MEDS: SODIUM CHLORIDE 0.9% FLUSH 10 ML FLUSH IV FLUSH SCH ×2 (09:00→20:48)
[2017-12-14] MEDS: VALSARTAN 160 MG TAB PO SCH (09:00)
[2017-12-14] MEDS: CLOPIDOGREL 75 MG TAB PO SCH (09:13)
[2017-12-14] MEDS: hydrALAZINE HCL 50 MG TAB PO SCH ×3 (09:13→16:44)
[2017-12-14] MEDS: ASPIRIN 81 MG CHEW TAB PO SCH (09:13)
[2017-12-14] MEDS: PANTOPRAZOLE SOD 40 MG DELAYED RELEASE TAB PO SCH (09:13)
[2017-12-14] MEDS: CARVEDILOL 12.5 MG TAB PO SCH ×2 (09:14→20:47)
--- NOTE | 2017-12-14 10:04 | HHI.HP ---
[facility] Service Family Medicine Primary Care Physician No Primary Care Physician Admission Diagnosis NSTEMI, pancreatitis Diagnoses: (1) Chest pain Diagnosis: Principal (2) Gallstone pancreatitis Diagnosis: Principal (3) HTN (hypertension) Diagnosis: Principal (4) CAD (coronary artery disease) Diagnosis: Principal (5) CKD (chronic kidney disease) Diagnosis: Principal (6) DM type 2 (diabetes mellitus, type 2) Diagnosis: Principal (7) Nutrition, metabolism, and development symptoms Diagnosis: Principal International Travel<30 Days: No Contact w/Intl Traveler<30days: No Known Affected Area: No History of Present Illness Mr Torres is a 52 year old male with a PMH significant for CAD s/p CABG, HTN, CKD, and DM type 2 who presented with chest pain. He has a history significant for chest pain that has been evaluated by both cardiology and GI in the past per his usual Drs in [place] at [facility]. The chest pain he has today is the same as the pain he has been previously evaluated for. He notes that 2 days ago, he had bad chest pain. He rested the next day and his chest pain resolved, but then the pain returned. The pain is not as strong today as it was two days ago. The pain he has been having is the same as the pain he has been having for the last few years, however usually the pain goes away with rest , but today the pain persisted and he did not feel that he could do his job. He believes this may be related to working long hours for [employer]. The pain worsens with exertion. The pain is described as pressure that is located in the center of his chest. He describes it as an exertional chest pain that subsides with rest. He denies any shortness of breath with the pain. He notes that sitting up helps the pain. He has tried nitro in the past which has helped with his pain. He is not currently having any chest pain. Sometimes he will have the pain several days in a row and sometimes he can go for a week without pain. He is currently established with [facility] in [place]. He has also had GI evaluation including an endoscopy which was normal. Per his history, he had CABG in 2014 and a recent stress test (presumably nuclear) that was normal. His Cardiologists in [place] do not believe his regular pain is cardiac as he can work a long 8 hour day and have no pain, pressure or any problems. Later in the day he has his pain worse with lying down and sometimes exertion. Better when sitting up straight and relaxing. He describes that this pain when it is slowing down feels like a cramping in his chest that eases off with a sort of diminishing crampy feeling. He is better with nitro and notices this problem happens after he takes his isosorbide in the morning and then it "wears off". He was on a heparin drip overnight. His troponins decreased and he has had no pain since he was admitted. His lipase was elevated enough to cause discomfort and other problems. His lipase is decreasing and he may have passed a gallstone and be improving now. Discussed with him that he can consider seeing a surgeon and having his gallbladder removed. He is from [place] and all his Drs are there so he wants to go back to [place] for any nonemergency procedures. Review of Systems Other Constitutional: DENIES: Diaphoretic episodes, Fatigue, Fever, Chills, Dizziness , Change in appetite Endocrine: DENIES: Polydipsia Eyes: DENIES: Blurred vision Ears, nose, mouth, throat: DENIES: Running Nose, Sinus Pain Respiratory: DENIES: Cough, Shortness of breath Cardiovascular: COMPLAINS OF: Chest pain, Lower Extremity Edema, DENIES: Syncope, Dyspnea on Exertion, Orthopnea Gastrointestinal: DENIES: Abdominal pain, Constipation, Diarrhea, Nausea, Vomiting Musculoskeletal: COMPLAINS OF: Muscle aches, DENIES: Joint pain, Back pain Neurologic: DENIES: Headache Psychiatric: DENIES: Confusion Past Family Social History Past Medical History DM type 2 HTN CAD s/p CABG CKD Past Surgical History CABG x1 2014 Allergies: Coded Allergies: lisinopril (Verified Adverse Reaction, Severe, HEADACHE, 12/13/17) sitagliptin (Verified Adverse Reaction, Severe, NAUSEAS, 12/13/17) Family History Mother: DM type 2, HTN Father: renal cancer, DM type 2, CAD Children: healthy 7 siblings: DM type 2, HTN Social History No tobacco, alcohol, illicit drug use. From [place], in town for bike week, working for [employer]. Physical Exam Vital Signs Vital Signs Date Time Temp Pulse Resp B/P (MAP) Pulse Ox O2 Delivery O2 Flow Rate FiO2 12/14/17 09:00 56 12/14/17 08:00 66 12/14/17 07:00 59 12/14/17 07:00 98.1 68 20 149/67 (94) 98 12/14/17 06:00 62 12/14/17 05:00 62 12/14/17 04:00 71 12/14/17 03:00 64 12/14/17 03:00 98.1 66 167/74 (105) 95 12/14/17 02:00 60 12/14/17 01:00 64 12/14/17 00:00 62 12/13/17 23:00 98.1 69 151/67 (95) 96 12/13/17 23:00 66 12/13/17 22:00 68 12/13/17 21:00 62 12/13/17 20:40 96 21 12/13/17 20:00 66 12/13/17 19:00 97.6 62 166/77 (106) 96 12/13/17 19:00 56 12/13/17 18:00 57 12/13/17 17:00 59 12/13/17 16:00 57 12/13/17 15:45 171/75 (107) 12/13/17 15:28 98.1 57 20 170/86 (114) 94 12/13/17 15:00 97.8 83 18 144/67 (92) 98 12/13/17 15:00 55 12/13/17 13:00 97.8 55 17 154/72 (99) 98 Room Air 12/13/17 12:31 97 21 12/13/17 11:53 97.8 60 17 141/61 (87) 98 Room Air 12/13/17 10:32 97.7 58 18 132/62 (85) 97 Room Air Physical Exam GENERAL: This is a well-nourished, well-developed obese male patient, in no apparent distress. SKIN: No rashes, ecchymoses or lesions. Cool and dry. HEAD: Atraumatic. Normocephalic. No temporal or scalp tenderness. EYES: Pupils equal round and reactive. Extraocular motions intact. No scleral icterus. No injection or drainage. ENT: Nose without bleeding, purulent drainage or septal hematoma. Throat without erythema, tonsillar hypertrophy or exudate. Uvula midline. Airway patent. NECK: Trachea midline. No JVD or lymphadenopathy. Supple, nontender, no meningeal signs. CARDIOVASCULAR: Regular rate and rhythm without murmurs, gallops, or rubs. Minimal tenderness to palpation of chest wall. RESPIRATORY: Clear to auscultation. Breath sounds equal bilaterally. No wheezes , rales, or rhonchi. GASTROINTESTINAL: Abdomen soft, non-tender, nondistended. No hepato-splenomegaly , or palpable masses. No guarding. MUSCULOSKELETAL: Extremities without clubbing, cyanosis, or edema. No joint tenderness or effusion. Trace edema. No calf tenderness. Negative Homans sign bilaterally. NEUROLOGICAL: Awake and alert. Cranial nerves II through XII intact. Motor and sensory grossly within normal limits. Normal speech. Laboratory Laboratory Tests Test 12/13/17 12:00 12/13/17 18:18 12/13/17 20:17 12/14/17 01:03 Total Creatine Kinase 220 195 Troponin I 0.25 0.19 Activated Partial Thromboplast Time 42.1 35.7 White Blood Count 9.8 Red Blood Count 3.04 Hemoglobin 8.5 Hematocrit 25.5 Mean Corpuscular Volume 83.8 Mean Corpuscular Hemoglobin 28.0 Mean Corpuscular Hemoglobin Concent 33.4 Red Cell Distribution Width 14.4 Platelet Count 151 Mean Platelet Volume 7.7 Neutrophils (%) (Auto) 69.0 Lymphocytes (%) (Auto) 19.9 Monocytes (%) (Auto) 8.2 Eosinophils (%) (Auto) 2.4 Basophils (%) (Auto) 0.5 Neutrophils # (Auto) 6.8 Lymphocytes # (Auto) 2.0 Monocytes # (Auto) 0.8 Eosinophils # (Auto) 0.2 Basophils # (Auto) 0.0 CBC Comment DIFF FINAL Differential Comment Blood Urea Nitrogen 76 Creatinine 2.14 Random Glucose 170 Total Protein 7.0 Albumin 3.2 Calcium Level 7.9 Alkaline Phosphatase 73 Aspartate Amino Transf (AST/SGOT) 13 Alanine Aminotransferase (ALT/SGPT) 21 Total Bilirubin 0.3 Sodium Level 144 Potassium Level 5.0 Chloride Level 118 Carbon Dioxide Level 17.6 Anion Gap 8 Estimat Glomerular Filtration Rate 33 Lipase 896 Test 12/14/17 08:04 Activated Partial Thromboplast Time 36.6 Result Diagram: 12/14/1710212/14/17 0103 Imaging Last Impressions Chest X-Ray 12/13/17 0816 Signed Impressions: Service Date/Time: Wednesday, December 13, 2017 08:38 - CONCLUSION: 1. Minimal streakiness within the left midlung field consistent with atelectasis and/or developing infiltrate. 2. Cardiomegaly. Kamran Reyes MD Abdomen/Pelvis CT 12/13/17 0000 Signed Impressions: Service Date/Time: Wednesday, December 13, 2017 10:07 - CONCLUSION: 1. Probable gallstones. Otherwise no acute findings within the abdomen and pelvis. Manuel Ruiz MD Capelizabethi VTE Risk Assessment Caprini VTE Risk Assessment: Mod/High Risk (score >= 2) Caprini Risk Assessment Model Point Value = 1 Point Value = 2 Point Value = 3 Point Value = 5 Age 41-60 Minor surgery BMI > 25 kg/m2 Swollen legs Varicose veins or History of unexplained or recurrent spontaneous Oral contraceptives or hormone replacement Sepsis (< 1 month) Serious lung disease, including pneumonia (< 1 month) Abnormal pulmonary function Acute myocardial infarction Congestive heart failure (< 1 month) History of inflammatory bowel disease Medical patient at bed rest Age 61-74 Arthroscopic surgery Major open surgery (> 45 min) Laparoscopic surgery (> 45 min) Malignancy Confined to bed (> 72 hours) Immobilizing plaster cast Central venous access Age >= 75 History of VTE Family history of VTE Factor V Leiden Prothrombin [id number] Lupus anticoagulant Anticardiolipin antibodies Elevated serum homocysteine Heparin-induced thrombocytopenia Other congenital or acquired thrombophilia Stroke (< 1 month) Elective arthroplasty Hip, pelvis, or leg fracture Acute spinal cord injury (< 1 month) Prophylaxis Regimen Total Risk Factor Score Risk Level Prophylaxis Regimen 0-1 Low Early ambulation 2 Moderate Order ONE of the following: *Sequential Compression Device (SCD) *Heparin 5000 units SQ BID 3-4 Higher Order ONE of the following medications: *Heparin 5000 units SQ TID *Enoxaparin/Lovenox 40 mg SQ daily (WT < 150 kg, CrCl > 30 mL/min) *Enoxaparin/Lovenox 30 mg SQ daily (WT < 150 kg, CrCl > 10-29 mL/min) *Enoxaparin/Lovenox 30 mg SQ BID (WT < 150 kg, CrCl > 30 mL/min) AND/OR *Sequential Compression Device (SCD) 5 or more Highest Order ONE of the following medications: *Heparin 5000 units SQ TID (Preferred with Epidurals) *Enoxaparin/Lovenox 40 mg SQ daily (WT < 150 kg, CrCl > 30 mL/min) *Enoxaparin/Lovenox 30 mg SQ daily (WT < 150 kg, CrCl > 10-29 mL/min) *Enoxaparin/Lovenox 30 mg SQ BID (WT < 150 kg, CrCl > 30 mL/min) AND *Sequential Compression Device (SCD) Assessment and Plan Assessment and Plan Patient is a 52 year old male with a PMH significant for CAD s/p CABG, HTN, and DM type 2 who presents today for chest pain. Problem List: (1) Chest pain ICD Codes: R07.9 - Chest pain, unspecified Status: Acute Plan: -DDx includes ACS, GERD, panic attack, myocarditis, costochondritis, esophageal spasm. -CAD risk factors include obesity, FH of NH, HTN, DM. -Previous stress test normal. -EKG shows NSR -CXR showed minimal streakiness in the left midlung field consistent with atelectasis or developing infiltrate. -Initial Trop elevated at 0.27. Trend Chinedu and EKGs x 2. -Supplemental O2. Daily aspirin. Protonix. -Morphine 2mg Q2 hrs PRN chest pain only. -Continue home carvedilol 25 mg by mouth twice a day -NTG PRN -Tele. - Continue heparin drip started in the ED based on the workup done by his Drs in [place], esophageal spasm is a possibility. will try twice a day isosorbide and prn NTG. if it helps his pain, he will follow up with his regular Clinical Appeals Auditor and GI there (2) Gallstone pancreatitis ICD Codes: K85.10 - Biliary acute pancreatitis without necrosis or infection Status: Acute Plan: Physical exam benign, no history of abdominal pain LFTs within normal limits Lipase elevated at 1238, decreasing CT abdomen/pelvis shows probably gallstones Consult GI for possible ERCP if deemed necessary he prefers to go back to [place] to have surgery (3) HTN (hypertension) ICD Codes: I10 - Essential (primary) hypertension Status: Chronic Plan: Stable. Continue home dose of carvedilol 25 mg by mouth twice a day, hydralazine 50 mg by mouth twice a day, valsartan 160 mg by mouth daily (4) CAD (coronary artery disease) ICD Codes: I25.10 - Atherosclerotic heart disease of [place] coronary artery without angina pectoris Status: Chronic Plan: Continue Plavix 75 mg by mouth daily, atorvastatin 40 mg by mouth at bedtime, isosorbide mononitrate 60 mg by mouth daily-will add a later dose, aspirin 81 mg by mouth daily and carvedilol 25 mg by mouth twice a day (5) CKD (chronic kidney disease) ICD Codes: N18.9 - Chronic kidney disease, unspecified Status: Chronic Plan: Creatinine 2.42 on admission, improving. no baseline available however patient states it is usually around 4 Avoid nephrotoxic medications Renally dose medications (6) DM type 2 (diabetes mellitus, type 2) ICD Codes: E11.9 - Type 2 diabetes mellitus without complications Status: Chronic Plan: Patient on glipizide 10 mg by mouth daily and Levemir 25 units SQ daily at home Hold home glipizide Decrease Levemir to 12 units SQ daily as patient is currently nothing by mouth Accu-Cheks and Sliding scale insulin (7) Nutrition, metabolism, and development symptoms ICD Codes: R63.8 - Other symptoms and signs concerning food and fluid intake Status: Acute Plan: Fluids: None Electrolytes: wnl, continue to monitor and replete PRN Nutrition: eating and feels well without increased pain DVT ppx: on heparin drip, will stop as his troponins are better plus pain free Problem Qualifiers (1) Chest pain: Qualified Codes: R07.89 - Other chest pain (2) HTN (hypertension): Qualified Codes: I10 - Essential (primary) hypertension (3) CAD (coronary artery disease): Qualified Codes: I25.118 - Atherosclerotic heart disease of [place] coronary artery with other forms of angina pectoris (4) CKD (chronic kidney disease): Qualified Codes: N18.9 - Chronic kidney disease, unspecified (5) DM type 2 (diabetes mellitus, type 2): Qualified Codes: E11.8 - Type 2 diabetes mellitus with unspecified complications; Z79.4 - skilled nursing (current) use of insulin Arelis Dunham MD Dec 14, 2017 10:04
--- NOTE | 2017-12-14 14:02 | EKG ---
Date Performed: 12/13/2017 Time Performed: 16:27:46 PTAGE: 52 years EKG: Sinus bradycardia with sinus arrhythmia Possible inferior infarct - age undetermined Septal and lateral ST-T changes may be due to myocardial ischemia Abnormal ECG Since the PREVIOUS TRACING , no significant change noted PREVIOUS TRACING DOCTOR: Bibi Finch Interpretating Date/Time 12/14/2017 13:55:08
--- NOTE | 2017-12-14 14:02 | EKG ---
Date Performed: 12/13/2017 Time Performed: 20:40:44 PTAGE: 52 years EKG: Sinus rhythm Possible inferior infarct - age undetermined Lateral ST-T changes may be due to myocardial ischemia Abnormal ECG Since the PREVIOUS TRACING , no significant change noted PREVIOUS TRACIN12/13/2017 16.27 DOCTOR: Bibi Finch Interpretating Date/Time 12/14/2017 13:55:16
--- NOTE | 2017-12-14 14:11 | EKG ---
Date Performed: 12/13/2017 Time Performed: 13:57:06 PTAGE: 52 years EKG: Sinus rhythm NONSPECIFIC ST & T-WAVE ABNORMALITY POSSIBLE INFERIOR WALL INFARCT OF UNDETERMINED AGE BUT ACUTE INF ARCT CANNOT BE RULED OUT BORDERLINE ECG PREVIOUS TRACING : 12/13/2017 08.21 DOCTOR: Bibi Finch Interpretating Date/Time 12/14/2017 14:09:22
--- NOTE | 2017-12-14 15:29 | HHI.GIFU ---
Subjective Remarks Pt resting in bed Denies nausea, vomiting, abdominal pain Tolerating heart healthy diet (Arielle Koroma) Objective Vitals I&O Vital Signs Date Time Temp Pulse Resp B/P (MAP) Pulse Ox O2 Delivery O2 Flow Rate FiO2 12/14/17 15:00 54 12/14/17 15:00 98.9 58 20 150/88 (108) 98 12/14/17 14:00 59 12/14/17 13:00 76 12/14/17 12:00 64 12/14/17 11:00 54 12/14/17 11:00 98.6 59 20 150/87 (108) 94 12/14/17 10:00 66 12/14/17 09:00 56 12/14/17 08:00 66 12/14/17 07:00 59 12/14/17 07:00 98.1 68 20 149/67 (94) 98 12/14/17 06:00 62 12/14/17 05:00 62 12/14/17 04:00 71 12/14/17 03:00 64 12/14/17 03:00 98.1 66 167/74 (105) 95 12/14/17 02:00 60 12/14/17 01:00 64 12/14/17 00:00 62 12/13/17 23:00 98.1 69 151/67 (95) 96 12/13/17 23:00 66 12/13/17 22:00 68 12/13/17 21:00 62 12/13/17 20:40 96 21 12/13/17 20:00 66 12/13/17 19:00 97.6 62 166/77 (106) 96 12/13/17 19:00 56 12/13/17 18:00 57 12/13/17 17:00 59 12/13/17 16:00 57 12/13/17 15:45 171/75 (107) 12/13/17 15:28 98.1 57 20 170/86 (114) 94 I/O 12/13/17 12/13/17 12/13/17 12/14/17 12/14/17 12/14/17 07:00 15:00 23:00 07:00 15:00 23:00 Intake Total 1000 ml 1000 ml 1840.2 ml Output Total 700 ml 1800 ml Balance 1000 ml 300 ml 40.2 ml Intake Oral 0 ml 720 ml IV Total 1000 ml 1000 ml 1120.2 ml Output Urine Total 700 ml 1800 ml # Bowel Movements 0 Laboratory Laboratory Tests Test 12/13/17 18:18 12/13/17 20:17 12/14/17 01:03 12/14/17 08:04 Activated Partial Thromboplast Time 42.1 35.7 36.6 Total Creatine Kinase 195 Troponin I 0.19 White Blood Count 9.8 Red Blood Count 3.04 Hemoglobin 8.5 Hematocrit 25.5 Mean Corpuscular Volume 83.8 Mean Corpuscular Hemoglobin 28.0 Mean Corpuscular Hemoglobin Concent 33.4 Red Cell Distribution Width 14.4 Platelet Count 151 Mean Platelet Volume 7.7 Neutrophils (%) (Auto) 69.0 Lymphocytes (%) (Auto) 19.9 Monocytes (%) (Auto) 8.2 Eosinophils (%) (Auto) 2.4 Basophils (%) (Auto) 0.5 Neutrophils # (Auto) 6.8 Lymphocytes # (Auto) 2.0 Monocytes # (Auto) 0.8 Eosinophils # (Auto) 0.2 Basophils # (Auto) 0.0 CBC Comment DIFF FINAL Differential Comment Blood Urea Nitrogen 76 Creatinine 2.14 Random Glucose 170 Total Protein 7.0 Albumin 3.2 Calcium Level 7.9 Alkaline Phosphatase 73 Aspartate Amino Transf (AST/SGOT) 13 Alanine Aminotransferase (ALT/SGPT) 21 Total Bilirubin 0.3 Sodium Level 144 Potassium Level 5.0 Chloride Level 118 Carbon Dioxide Level 17.6 Anion Gap 8 Estimat Glomerular Filtration Rate 33 Lipase 896 Imaging Last Impressions Chest X-Ray 12/13/17 0829 Signed Impressions: Service Date/Time: Wednesday, December 13, 2017 08:38 - CONCLUSION: 1. Minimal streakiness within the left midlung field consistent with atelectasis and/or developing infiltrate. 2. Cardiomegaly. Kamran Reyes MD Abdomen/Pelvis CT 12/13/17 0000 Signed Impressions: Service Date/Time: Wednesday, December 13, 2017 10:07 - CONCLUSION: 1. Probable gallstones. Otherwise no acute findings within the abdomen and pelvis. Manuel Ruiz MD Physical Exam HEENT: Normocephalic; atraumatic CHEST: Even/unlabored CARDIAC: RRR ABDOMEN: Obese, soft, nontender, bowel sounds active SKIN: Normal; no rash; no jaundice. 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 (Arielle Koroma) Assessment and Plan Assessment: (1) Gallstone pancreatitis ICD Codes: K85.10 - Biliary acute pancreatitis without necrosis or infection Status: Acute (2) Nutrition, metabolism, and development symptoms ICD Codes: R63.8 - Other symptoms and signs concerning food and fluid intake Status: Acute Plan Assessment: - Pancreatitis- Lipase on admission - 1238. Trending down. Pt denies history of pancreatitis, denies ETOH. CT abdomen noted --> Probably gallstones. Otherwise no acute findings. ? gallstone pancreatitis. Pt now tolerating heart healthy diet. Denies nausea, vomiting, abdominal pain. - Elevated troponin- trending down. Heparin gtt discontinued, now on ASA and Plavix - Anemia- normocytic- no obvious GIB- ? secondary to CKD Plan ROXANNE Protonix Pt stable from GI perspective, we will sign off, reconsult as needed Have pt follow up with GI after discharge Pt has been seen and examined by myself and Dr. Hernandez and this note is written on his behalf (Arielle Koroma) Physician Comments Agree with above. Please notify us if needed again. (Nevaeh Hernandez MD) Arielle Koroma Dec 14, 2017 15:29 Nevaeh Hernandez MD Dec 14, 2017 15:55
[2017-12-14] MEDS: ATORVASTATIN 40 MG TAB PO SCH (20:47)
[2017-12-14] MEDS: ISOSORBIDE MONONITRATE 60 MG CR TAB (IMDUR) PO SCH (20:47)
[2017-12-14] MEDS: INSULIN DETEMIR 100 UNITS/ML VIAL SQ SCH (20:48)
[2017-12-15] VITALS (12 sets, daily range): BP systolic 152–186; BP diastolic 56–82; PULSE 58–87; RESP 18; TEMP 98.5–99; O2SAT 95–98
[2017-12-15] MEDS: INSULIN ASPART SUPPLEMENTAL SCALE SQ SCH (09:03)
[2017-12-15] MEDS: ASPIRIN 81 MG CHEW TAB PO SCH (09:06)
[2017-12-15] MEDS: hydrALAZINE HCL 50 MG TAB PO SCH (09:06)
[2017-12-15] MEDS: VALSARTAN 160 MG TAB PO SCH (09:06)
[2017-12-15] MEDS: CLOPIDOGREL 75 MG TAB PO SCH (09:07)
[2017-12-15] MEDS: PANTOPRAZOLE SOD 40 MG DELAYED RELEASE TAB PO SCH (09:07)
[2017-12-15] MEDS: ISOSORBIDE MONONITRATE 60 MG CR TAB (IMDUR) PO SCH (09:07)
[2017-12-15] MEDS: CARVEDILOL 12.5 MG TAB PO SCH (09:14)
[2017-12-15] MEDS: SODIUM CHLORIDE 0.9% FLUSH 10 ML FLUSH IV FLUSH SCH (09:14)
[2017-12-15 10:37] LABS: HEMATOCRIT 26.2 % (39.0-51.0); HEMOGLOBIN 8.8 GM/DL (13.0-17.0); MEAN CELL VOLUME 83.7 FL (80.0-100.0); MEAN CORPUSCULAR HEMOGLOBIN 28.2 PG (27.0-34.0); MEAN CORPUSCULAR HGB CONC 33.7 % (32.0-36.0); MEAN PLATELET VOLUME 7.8 FL (7.0-11.0); PLATELET COUNT 178 TH/MM3 (150-450); RED BLOOD COUNT 3.13 MIL/MM3 (4.50-5.90); RED CELL DISTRIBUTION WIDTH 14.7 % (11.6-17.2); WHITE BLOOD COUNT 8.6 TH/MM3 (4.0-11.0)
[2017-12-15 11:07] LABS: BICARBONATE 16.6 MEQ/L (21.0-32.0); CALCIUM 8.3 MG/DL (8.5-10.1); CREATININE 1.88 MG/DL (0.60-1.30)
[2017-12-15] MEDS ORDERED: NITR0.4S SL (11:09)
[2017-12-15] MEDS ORDERED: ISOS60TA PO (11:09)
--- NOTE | 2017-12-15 11:10 | HHI.DCPOC ---
Discharge Care Plan Diagnosis: (1) Gallstone pancreatitis (2) Chest pain Goals to Promote Your Health * To prevent worsening of your condition and complications * To maintain your health at the optimal level Directions to Meet Your Goals Take your medications as prescribed Follow your dietary instruction Follow activity as directed Keep your appointments as scheduled Take your immunizations and boosters as scheduled If your symptoms worsen call your PCP, if no PCP go to Urgent Care Center or Emergency Room Smoking is Dangerous to Your Health. Avoid second hand smoke Call the 24-hour hour crisis hotline for domestic abuse at Kristyn Briseno MD, R3 Dec 15, 2017 11:10
--- NOTE | 2017-12-15 11:16 | HHI.FPPN ---
Subjective Remarks No acute issues overnight. Vitals are stable, patient remains afebrile. he denies any further chest pain or abdominal pain. He is tolerating PO without difficulty. He denies any shortness of breath, fever, chills, nausea or vomiting. (Kristyn Briseno MD, R3) Objective Vitals Vital Signs Date Time Temp Pulse Resp B/P (MAP) Pulse Ox O2 Delivery O2 Flow Rate FiO2 12/15/17 10:00 64 12/15/17 10:00 67 12/15/17 09:00 65 12/15/17 08:00 98.5 62 18 186/82 (116) 95 12/15/17 07:00 65 12/15/17 06:11 62 12/15/17 05:00 63 12/15/17 04:00 59 12/15/17 03:00 64 12/15/17 03:00 99.0 68 152/56 (88) 96 12/15/17 02:00 59 12/15/17 01:00 63 12/15/17 00:00 58 12/14/17 23:00 97.7 64 160/69 (99) 97 12/14/17 23:00 64 12/14/17 22:00 62 12/14/17 21:18 21 12/14/17 21:00 62 12/14/17 20:00 60 12/14/17 19:00 65 12/14/17 19:00 98.4 65 184/86 (118) 95 12/14/17 18:00 63 12/14/17 17:00 64 12/14/17 16:00 58 12/14/17 15:00 54 12/14/17 15:00 98.9 58 20 150/88 (108) 98 12/14/17 14:00 59 12/14/17 13:00 76 12/14/17 12:00 64 I/O 12/14/17 12/14/17 12/14/17 12/15/17 12/15/17 12/15/17 07:00 15:00 23:00 07:00 15:00 23:00 Intake Total 1840.2 ml 960 ml 720 ml Output Total 1800 ml 900 ml 2475 ml Balance 40.2 ml 60 ml -1755 ml Intake Oral 720 ml 960 ml 720 ml IV Total 1120.2 ml Output Urine Total 1800 ml 900 ml 2475 ml # Bowel Movements 0 (Kristyn Briseno MD, R3) Result Diagram: 12/15/17 1000 12/15/17 1000 Imaging Last Impressions Chest X-Ray 12/13/17 0829 Signed Impressions: Service Date/Time: Wednesday, December 13, 2017 08:38 - CONCLUSION: 1. Minimal streakiness within the left midlung field consistent with atelectasis and/or developing infiltrate. 2. Cardiomegaly. Kamran Reyes MD Abdomen/Pelvis CT 12/13/17 0000 Signed Impressions: Service Date/Time: Wednesday, December 13, 2017 10:07 - CONCLUSION: 1. Probable gallstones. Otherwise no acute findings within the abdomen and pelvis. Manuel Ruiz MD Objective Remarks GENERAL: This is a well-nourished, well-developed obese male patient, in no apparent distress. SKIN: No rashes, ecchymoses or lesions. Cool and dry. HEAD: Atraumatic. Normocephalic. No temporal or scalp tenderness. EYES: Pupils equal round and reactive. Extraocular motions intact. No scleral icterus. No injection or drainage. ENT: Nose without bleeding, purulent drainage or septal hematoma. Throat without erythema, tonsillar hypertrophy or exudate. Uvula midline. Airway patent. NECK: Trachea midline. No JVD or lymphadenopathy. Supple, nontender, no meningeal signs. CARDIOVASCULAR: Regular rate and rhythm without murmurs, gallops, or rubs. Minimal tenderness to palpation of chest wall. RESPIRATORY: Clear to auscultation. Breath sounds equal bilaterally. No wheezes , rales, or rhonchi. GASTROINTESTINAL: Abdomen soft, non-tender, nondistended. No hepato-splenomegaly , or palpable masses. No guarding. MUSCULOSKELETAL: Extremities without clubbing, cyanosis, or edema. NEUROLOGICAL: Awake and alert. Cranial nerves II through XII intact. Motor and sensory grossly within normal limits. Normal speech. (Kristyn Briseno MD, R3) A/P Assessment and Plan Patient is a 52 year old male with a PMH significant for CAD s/p CABG, HTN, and DM type 2 who presented with chest pain. Discharge Planning Discharge home today. (Kristyn Briseno MD, R3) Attending Attestation Patient seen and examined. Case reviewed and discussed with the resident team. Agree with plan of care as discussed with me and documented in the resident note. he is very eager to go home as soon as possible (Arelis Dunham MD) Problem List: (1) Chest pain ICD Codes: R07.9 - Chest pain, unspecified Status: Resolved Plan: based on the workup done by his Drs in [place], esophageal spasm is a possibility. will try twice a day isosorbide and prn NTG. No further symptoms since admission. Patient will follow up with his regular Census T[facility] and GI there [place] stable, no EKG changes -Continue home carvedilol 25 mg by mouth twice a day -NTG PRN -s/p heparin drip (2) Gallstone pancreatitis ICD Codes: K85.10 - Biliary acute pancreatitis without necrosis or infection Status: Resolved Plan: Physical exam benign, no history of abdominal pain LFTs within normal limits Lipase elevated at 1238, trending down to wnl CT abdomen/pelvis shows probably gallstones Further GI workup as outpatient he prefers to go back to [place] to have possible cholecystectomy (3) HTN (hypertension) ICD Codes: I10 - Essential (primary) hypertension Status: Chronic Plan: Stable. Continue home dose of carvedilol 25 mg by mouth twice a day, hydralazine 50 mg by mouth twice a day, valsartan 160 mg by mouth daily (4) CAD (coronary artery disease) ICD Codes: I25.10 - Atherosclerotic heart disease of hoh coronary artery without angina pectoris Status: Chronic Plan: Continue Plavix 75 mg by mouth daily, atorvastatin 40 mg by mouth at bedtime, isosorbide mononitrate 60 mg by mouth daily-will add a later dose, aspirin 81 mg by mouth daily and carvedilol 25 mg by mouth twice a day (5) CKD (chronic kidney disease) ICD Codes: N18.9 - Chronic kidney disease, unspecified Status: Chronic Plan: Creatinine 2.42 on admission, improving. no baseline available however patient states it is usually around 4 Avoid nephrotoxic medications Renally dose medications (6) DM type 2 (diabetes mellitus, type 2) ICD Codes: E11.9 - Type 2 diabetes mellitus without complications Status: Chronic Plan: Patient on glipizide 10 mg by mouth daily and Levemir 25 units SQ daily at home SSI Resume home medications on discharge (7) Nutrition, metabolism, and development symptoms ICD Codes: R63.8 - Other symptoms and signs concerning food and fluid intake Status: Acute Plan: Fluids: None Electrolytes: wnl, continue to monitor and replete PRN Nutrition: Heart Healthy, diabetic diet DVT ppx: SCD's (Kristyn Briseno MD, R3) Problem Qualifiers (1) Chest pain: Qualified Codes: R07.89 - Other chest pain (2) HTN (hypertension): Qualified Codes: I10 - Essential (primary) hypertension (3) CAD (coronary artery disease): Qualified Codes: I25.118 - Atherosclerotic heart disease of hoh coronary artery with other forms of angina pectoris (4) CKD (chronic kidney disease): Qualified Codes: N18.9 - Chronic kidney disease, unspecified (5) DM type 2 (diabetes mellitus, type 2): Qualified Codes: E11.8 - Type 2 diabetes mellitus with unspecified complications; Z79.4 - MCC (current) use of insulin Kristyn Briseno MD, R3 Dec 15, 2017 11:16 Arelis Dunham MD Dec 18, 2017 21:19
== END 2017-12-15 12:00 | disposition home or self-care (01) | DRG 439 ==
LOC: NEPC 08:13 → NEDA 11:03 → HCPC 15:25
PROVIDERS: ADMIT Family Medicine; ATTEND Family Medicine
DX: K85.10 Biliary acute pancreatitis without necrosis or infection (principal); Z68.41 Body mass index [BMI] 40.0-44.9, adult; E11.22 Type 2 diabetes mellitus with diabetic chronic kidney disease; I42.9 Cardiomyopathy, unspecified; E66.01 Morbid (severe) obesity due to excess calories; I12.9 Hypertensive chronic kidney disease with stage 1 through stage 4 chronic kidney disease, or unspecified chronic kidney disease; N18.9 Chronic kidney disease, unspecified; K80.20 Calculus of gallbladder without cholecystitis without obstruction; E78.00 Pure hypercholesterolemia, unspecified; I25.10 Atherosclerotic heart disease of native coronary artery without angina pectoris; Z95.1 Presence of aortocoronary bypass graft; Z79.4 Long term (current) use of insulin; Z79.82 Long term (current) use of aspirin
CPT/HCPCS: 71045; 74176; 80048; 80053; 80061; 82550; 82948; 83690; 83880; 84484; 85025; 85027; 85610; 85730; 93005; 96360; J1644; J1815; J7030